=== PATIENT | female | born 1950 | race Caucasian/White ===

== ENCOUNTER 2023-05-17 09:40 | Day surgery (SDC) | payer MEDICARE ==
[2023-05-14 11:31] VITALS: BMI 28.8
[2023-05-17] MEDS ORDERED: Gentamicin 80 MG/2 ML VIAL ONE ×2 (09:41→11:24)
[2023-05-17] MEDS ORDERED: Bupivacaine 0.25% HCL 30 ML VIAL ONE (09:41)
[2023-05-17] MEDS ORDERED: Lidocaine 1% (PF) 30 ML VIAL ONE (09:41)
[2023-05-17] MEDS ORDERED: EPINEPHrine 1 MG/ML AMP ONE (09:41)
[2023-05-17] MEDS ORDERED: Vancomycin 1 GM VIAL ONE ×2 (09:41→11:24)
[2023-05-17] MEDS ORDERED: Acetaminophen 500 MG TAB ONE (09:54)
[2023-05-17] MEDS ORDERED: Heparin 5,000 UNITS/ML VIAL ONE (09:54)
[2023-05-17] MEDS ORDERED: Midazolam HCl 2 mg/2 ml Vial ONE (09:57)
[2023-05-17] MEDS ORDERED: Famotidine/PF 20 mg/2ml Vial ONE (09:58)
[2023-05-17] MEDS ORDERED: Scopolamine 1.5 mg/72 hour Patch ONE (09:58)
[2023-05-17] MEDS ORDERED: fentaNYL PF 100 MCG/2 ML SYRINGE ONE (10:18)
[2023-05-17] MEDS ORDERED: Sodium Chloride 0.9% 100 ML ONE (10:19)
[2023-05-17] MEDS ORDERED: CEFAZOLIN 2 GM VIAL ONE (10:19)
[2023-05-17] MEDS ORDERED: PROPOFOL 200 MG/20 ML VIAL ONE (10:40)
[2023-05-17] MEDS ORDERED: Ondansetron PF 4 MG/2 ML Vial ONE (10:40)
[2023-05-17] MEDS ORDERED: Dexamethasone 20 MG/5 ML VIAL ONE (10:40)
[2023-05-17] MEDS ORDERED: PHENYLEPHRINE-NS 100 MCG/ML 10 ML SYRINGE ONE (10:40)
[2023-05-17] MEDS ORDERED: Rocuronium Bromide 10 MG/ML (10ML VIAL) ONE (10:40)
[2023-05-17] MEDS ORDERED: Lidocaine 1% PF 5 ML VIAL ONE (10:40)
[2023-05-17] MEDS ORDERED: Vancomycin 500 MG VIAL (PEDI) ONE (11:24)
[2023-05-17] MEDS ORDERED: SUGAMMADEX SODIUM 200 MG/2 ML VIAL ONE (12:48)
[2023-05-17] MEDS ORDERED: fentaNYL 50 mcg/mL 1 mL Vial ONE ×4 (13:14→14:05)
[2023-05-17] MEDS ORDERED: traMADol HCl 50 MG TAB ONE (14:51)
== END 2023-05-17 15:25 | disposition home or self-care (01) ==
LOC: SDC 09:40
PROVIDERS: ATTEND Plastic Surgery
PROC: 0HQU0ZZ Repair Left Breast, Open Approach (ICD-10-PCS; principal; 2023-05-17)
PROC: 0HHT0NZ Insertion of Tissue Expander into Right Breast, Open Approach (ICD-10-PCS; 2023-05-17)
DX: N60.12 Diffuse cystic mastopathy of left breast (principal); C50.911 Malignant neoplasm of unspecified site of right female breast; I10 Essential (primary) hypertension; E11.9 Type 2 diabetes mellitus without complications; Z90.710 Acquired absence of both cervix and uterus; Z79.899 Other long term (current) drug therapy
CPT/HCPCS: 19316; 19357; J3010; 88305; C1713; C1789; J0171; J1100; J1580; J1644; J2001; J2250; J2405; J2704; J3370; J3371; J3490; S0020; S0028